=== PATIENT | female | born 2000 | race Caucasian/White ===

== ENCOUNTER 2022-09-01 09:08 | Outpatient (CLI) | payer BC, SELFPAY | END 2022-09-01 09:09 | disposition home or self-care (01) | LOC: NFLDREF 09-04 13:13 | PROVIDERS: Visit Provider Emergency Medicine | DX: Z13.6 Encounter for screening for cardiovascular disorders (principal) | CPT/HCPCS: 80061 ==

== ENCOUNTER 2022-12-23 10:12 | Outpatient (CLI) | payer BC, SELFPAY ==
[2022-12-23 14:10] LABS: Chlamydia DNA Amplified* NOT DETECTED (No Detected); GC DNA Amplified* NOT DETECTED (No Detected)
== END 2022-12-23 10:13 | disposition home or self-care (01) ==
LOC: FRMREF 10:13
PROVIDERS: Visit Provider Registered Nurse
DX: Z01.419 Encounter for gynecological examination (general) (routine) without abnormal findings (principal); Z11.3 Encounter for screening for infections with a predominantly sexual mode of transmission
CPT/HCPCS: 87491; 87591